=== PATIENT | female | born 1990 | race Caucasian/White ===

== ENCOUNTER 2017-10-26 18:51 | Outpatient (CLI) | payer OTHER ==
--- NOTE | 2017-10-27 10:21 | Ultrasound Report ---
COMPLETE ABDOMINAL ULTRASOUND: 10/26/2017 CLINICAL INDICATION: Unspecified abdominal pain. TECHNIQUE: Real-time scanning was performed with [employer] sales representative static images obtained. FINDINGS: The liver measures 15.7 cm. Hepatic echotexture is normal. No intrahepatic biliary dilatation or focal parenchymal lesion is present. The common bile duct measures 3 mm. The gallbladder is normal, as is the visualized pancreas. The kidneys are normal, with the right measuring 10.1 cm and the left measuring 10.0 cm. The spleen measures 11.1 cm, and demonstrates normal echotexture. The abdominal aorta is normal in caliber throughout. The inferior vena cava is unremarkable. No free fluid is present. IMPRESSION: NORMAL ABDOMINAL ULTRASOUND. TD: 10/27/2017 10:12
== END 2017-10-26 18:52 | disposition home or self-care (01) ==
LOC: DI 18:51
PROVIDERS: ATTEND Nurse Practitioner Family
DX: R10.12 Left upper quadrant pain (principal); R10.13 Epigastric pain
CPT/HCPCS: 76700